=== PATIENT | male | born 1990 | race Caucasian/White ===

== ENCOUNTER → 2017-08-01 | Outpatient (REF) | payer OTHER | LOC: M SFHCLERA 17:19 | PROVIDERS: ATTEND Physician Assistant | DX: J02.9 Acute pharyngitis, unspecified (principal) ==

== ENCOUNTER → 2019-11-04 | Outpatient (CLI) | payer OTHER ==
--- NOTE | 2019-11-04 11:07 | REP ---
Left thumb: Four views. History: Injury left thumb. Findings: Four views of the left thumb demonstrate soft tissue swelling diffusely. The frontal view demonstrates evidence of a chip fracture along the radial side of the distal end of the proximal phalanx of the thumb at the IP joint. No other projection demonstrates this finding. No other evidence of fracture. Impression: Diffuse soft tissue swelling. Chip fracture along the distal end of the proximal phalanx near the IP joint. Electronically Signed by Wayne Reyna MD 11/04/2019 10:57 A
== END ==
LOC: M LRY 10:42
PROVIDERS: ATTEND Nurse Practitioner Family
DX: S69.92XA Unspecified injury of left wrist, hand and finger(s), initial encounter (principal); W18.30XA Fall on same level, unspecified, initial encounter; Y92.009 Unspecified place in unspecified non-institutional (private) residence as the place of occurrence of the external cause